=== PATIENT | male | born 1980 | race Caucasian/White ===

== ENCOUNTER 2020-06-30 19:55 | Emergency (ER) | payer OTHER ==
[~2020-06-30] VITALS: Ht 175.3 cm; Wt 95.3 kg
[2020-06-30 19:58] VITALS: BP 173/115
[2020-06-30] MEDS ORDERED: CLEOCIN HCL150 MG PO (20:25)
[2020-06-30] MEDS ORDERED: KEFLEX500 M1 PO (20:25)
== END 2020-06-30 20:35 | disposition home or self-care (01) ==
LOC: ER 19:55
DX: L03.113 Cellulitis of right upper limb (principal); Z88.2 Allergy status to sulfonamides